=== PATIENT | female | born 1980 | race Caucasian/White ===

== ENCOUNTER 2022-07-16 06:21 | Emergency (ER) | payer OTHER ==
[~2022-07-16] VITALS: Ht 175.3 cm; Wt 102.1 kg
[2022-07-16 06:35] VITALS: BP_SYST 122
--- NOTE | 2022-07-16 06:35 | NUR ---
Patient triaged and placed in ED room 7. VSS and patient appears in no acute distress at this time. Accompanied by self. ER MD Salinas made aware.
[2022-07-16] MEDS ORDERED: MORPHINE 4 MG INJ. 4 MG/ML VIAL IM ONE (06:45)
[2022-07-16] MEDS ORDERED: ONDANSETRON 4 MG ODT TAB PO ONE (06:45)
--- NOTE | 2022-07-16 06:45 | NUR ---
Report given to RACHAEL Bocanegra at this time.
--- NOTE | 2022-07-16 06:50 | NUR ---
Patient taken to ultrasound; accompanied by radiology.
--- NOTE | 2022-07-16 07:00 | NUR ---
Pt off to ultrasound.
[2022-07-16 07:03] LABS: BASOPHILS % (AUTO) 0.3 % (0.0-2.0); EOSINOPHILS % (AUTO) 0.1 % (0.0-4.0); HEMATOCRIT 40.7 % (36-48); HEMOGLOBIN 13.8 g/dL (12.0-16.0); LYMPHOCYTES # (AUTO) 0.8 K/uL (1.0-5.5); MEAN CORPUSCULAR HEMOGLOBIN 30 pg (27-31); MEAN CORPUSCULAR HGB CONC 34 % (32-36); MEAN CORPUSCULAR VOLUME 90 fL (79.0-98.0); MONOCYTES # (AUTO) 0.4 K/uL (0.0-1.0); MONOCYTES % (AUTO) 2.8 % (1.7-9.3); NEUTROPHILS # (AUTO) 12.4 K/uL (1.8-7.7); NEUTROPHILS % (AUTO) 90.8 % (40.0-70.0); PLATELET COUNT (AUTO) 235 K/uL (130-430); RED BLOOD CELL COUNT(AUTO) 4.54 MIL/uL (4.2-6.2); RED CELL DISTRIBUTION WIDTH 14.8 % (9.0-15.0); WHITE BLOOD COUNT (AUTO) 13.7 K/uL (4.8-10.8)
[2022-07-16 07:18] LABS: ACETONE, SERUM NEGATIVE (NEGATIVE)
[2022-07-16 07:23] LABS: ALANINE AMINOTRANSFERASE 25 U/L (12-78); ALBUMIN 3.2 g/dL (3.4-4.8); AMYLASE 52 U/L (0-100); ANION GAP 13 (5-15); ASPARTATE AMINOTRANSFERASE 24 U/L (10-37); CALCIUM 9.1 mg/dL (8.4-11.0); CHLORIDE 100 mmol/L (98-107); CREATININE 0.92 mg/dL (0.55-1.30); GLUCOSE 128 mg/dL (70-99); LACTATE DEHYDROGENASE 157 U/L (81-234); LIPASE 102 U/L (73-393); TOTAL BILIRUBIN 0.4 mg/dL (0.0-1.0); UREA NITROGEN, BLOOD 14 mg/dL (8-21)
--- NOTE | 2022-07-16 07:45 | NUR ---
ASSUMED Ptient care AAOX4 SPEECH CLEAR AND COHERENT C/O ABDOMINAL PAIN, MEDICATED WITH MORPHINE , WILL CONTINUE TO MONITOR.
--- NOTE | 2022-07-16 08:40 | NUR ---
PATIENT VERBALIZES FEELING BETTER.
[2022-07-16 08:53] LABS: BILIRUBIN,URINE NEGATIVE (NEGATIVE); BLOOD, URINE NEGATIVE (NEGATIVE); CLARITY/URINE CLEAR (CLEAR); COLOR,URINE YELLOW (YELLOW); GLUCOSE,URINE NEGATIVE (NEGATIVE); KETONES,URINE 1+ (NEGATIVE); LEUKOCYTE ESTERASE ,URINE NEGATIVE (NEGATIVE); NITRITE, URINE NEGATIVE (NEGATIVE); PH,URINE 5.5 (5.0-8.0); PROTEIN URINE TRACE (NEGATIVE); UROBILINOGEN,URINE 0.2 (0.2-1.0)
[2022-07-16 09:26] LABS: BACTERIA,URINE FEW /HPF (None Seen); CALCIUM OXALATE CRYSTALS,UR 0-10 /HPF (None Seen); RBC,URINE 0-3 /HPF (0-3); WBC,URINE 0-3 /HPF (0-3)
--- NOTE | 2022-07-16 09:57 | NUR ---
Patient does not wish to proceed with medical care recommended by DR MANZANARES. Patient given information related to possible complications, up to and including , which could occur as a result of leaving hospital at this time. Patient verbalizes understanding of risks involved leaving against medical advice. Patient has signed AMA form.
== END 2022-07-16 09:56 | disposition left against medical advice (07) ==
LOC: SED 06:21
DX: O26.892 Other specified pregnancy related conditions, second trimester (principal); Z3A.17 17 weeks gestation of pregnancy; Z79.899 Other long term (current) drug therapy
CPT/HCPCS: 99285; 80053; 81000; 82009; 82150; 83615; 83690; 85025; 86140; 36415; 76802; 96372; 83605; Q0162; J2270